=== PATIENT | male | born 1960 | race Caucasian/White ===

== ENCOUNTER → 2024-07-01 09:14 | Outpatient (REF) | payer OTHER, SELFPAY | LOC: HWRAD 09:14 | PROVIDERS: ATTENDING PHYSICIAN Nurse Practitioner | DX: R91.8 Other nonspecific abnormal finding of lung field (principal) | CPT/HCPCS: 71250 ==

== ENCOUNTER → 2025-01-12 09:10 | Outpatient (REF) | payer OTHER, SELFPAY | LOC: RCS 09:10 | PROVIDERS: ATTENDING PHYSICIAN Nurse Practitioner | DX: I49.9 Cardiac arrhythmia, unspecified (principal) | CPT/HCPCS: 93225; 93226 ==